=== PATIENT | male | born 1945 | race Asian ===

== ENCOUNTER 2020-10-02 08:29 | Inpatient (IN) | payer OTHER ==
[~2020-10-02] VITALS: Ht 165.1 cm; Wt 60.5 kg
[2020-10-02] MEDS: BUDESONIDE (INHALATION) 180 MCG IH IN SCH (06:08)
[2020-10-02 09:30] LABS: Basophils # (auto) 0 10 ^3/uL (0-0.2); Basophils % (auto) 0.3 % (0.0-2.0); Eosinophils # (auto) 0 10 ^3/uL (0-0.8); Hematocrit 45.5 % (41.0-53.0); Hemoglobin 15.8 g/dL (13.5-17.5); Lymphocytes # (auto) 0.7 10 ^3/uL (0.4-5.4); Lymphocytes % (auto) 9.2 % (10.0-50.0); Mean Corpuscular Hemoglobin 33.2 pg (28.0-32.0); Mean Corpuscular Hgb Conc. 34.8 g/dL (32.0-36.0); Mean Corpuscular Volume 95.7 fL (80.0-100.0); Monocytes # (auto) 0.8 10 ^3/uL (0-1.3); Monocytes % (auto) 10.5 % (0.0-12.0); Neutrophils # (auto) 5.8 10 ^3/uL (1.6-8.6); Nucleated Red Blood Cells % 0.1 %; Red Blood Cells 4.76 10^6/uL (4.5-5.90); Red Cell Distribution Width 12.8 % (11.8-14.3); White Blood Cell 7.3 10^3/uL (4.4-10.8)
[2020-10-02] MEDS ORDERED: ZINC SULFATE 220mg CAP or TAB PO ONE (09:30)
[2020-10-02] MEDS ORDERED: cefTRIAXone 1GM/50ML D5W 50 ML IV ONE (09:30)
[2020-10-02] MEDS ORDERED: DexAMETHasone SOD PHOS 10MG/1ML VIAL INJ IV ONE (09:30)
[2020-10-02] MEDS ORDERED: AZITHROMYCIN 500MG/ 250ML 250 ML IV ONE (09:30)
[2020-10-02 09:46] LABS: INR 1.02 (0.9-1.15); Partial Thromboplastin Time 30.2 sec (23.0-31.2)
[2020-10-02 10:07] LABS: Anion Gap 5 (5-15); Blood Urea Nitrogen 16 mg/dL (7-18); Carbon Dioxide 29 mmol/L (21-32); Chloride 97 mmol/L (98-107); Glucose 109 mg/dL (74-106); Potassium 3.9 mmol/L (3.5-5.1); Sodium 131 mmol/L (136-145)
[2020-10-02 10:15] LABS: Alanine Aminotransferase 154 U/L (16-61); Alkaline Phosphatase 61 U/L (45-117); Aspartate Aminotransferase 154 U/L (15-37); Bilirubin, Total 0.5 mg/dL (0.2-1.0); CRP High Sensitivity 9.94 mg/dL (< 0.3); GFR African American 101 mL/min; GFR Non-African American 83 mL/min; Lactate Dehydrogenase 407 U/L (87-241); Total Protein 7.3 g/dL (6.4-8.2)
[2020-10-02] MEDS ORDERED: ONDANSETRON HCL 4 MG/2 ML VIAL IV PRN (14:00)
[2020-10-02] MEDS ORDERED: NITROGLYCERIN 0.4 MG SL TAB SL PRN (14:00)
[2020-10-02] MEDS ORDERED: guaiFENesin-DM 100/10mg/5ml SYR PO PRN (14:00)
[2020-10-02] MEDS ORDERED: HYDROcodone-ACET 5/325MG TAB PO PRN (14:00)
[2020-10-02] MEDS ORDERED: ACETAMINOPHEN 500 MG TAB PO PRN (14:00)
[2020-10-02] MEDS ORDERED: MORPHINE SULFATE INJECTION 2 MG/ML SYRG IV PRN ×2 (14:00)
[2020-10-02] MEDS ORDERED: REMDESIVIR PER PHARMACY 0 ML IV SCH (14:00)
[2020-10-02] MEDS: ENOXAPARIN SOD 40 MG/0.4 ML SYRINGE SC SCH (22:09)
[2020-10-02 22:34] LABS: Urine Bacteria NONE SEEN /hpf (None Seen); Urine Blood TRACE /uL (Negative); Urine Specific Gravity 1.016 (1.001-1.035); Urine WBC <1 /hpf (0 - 3)
[2020-10-03 06:11] LABS: BUN/Creatinine Ratio 23.5; Calcium 7.8 mg/dL (8.5-10.1); Potassium 3.8 mmol/L (3.5-5.1)
[2020-10-03 06:18] LABS: Basophils # (auto) 0 10 ^3/uL (0-0.2); Basophils % (auto) 0.2 % (0.0-2.0); Eosinophils # (auto) 0 10 ^3/uL (0-0.8); Hematocrit 43.4 % (41.0-53.0); Hemoglobin 15.1 g/dL (13.5-17.5); Lymphocytes # (auto) 0.9 10 ^3/uL (0.4-5.4); Lymphocytes % (auto) 10.9 % (10.0-50.0); Mean Corpuscular Hemoglobin 32.9 pg (28.0-32.0); Mean Corpuscular Hgb Conc. 34.9 g/dL (32.0-36.0); Mean Corpuscular Volume 94.3 fL (80.0-100.0); Monocytes % (auto) 11.8 % (0.0-12.0); Neutrophils # (auto) 6.3 10 ^3/uL (1.6-8.6); Neutrophils % (auto) 77.1 % (37.0-80.0); Nucleated Red Blood Cells % 0.1 %; Red Cell Distribution Width 12.7 % (11.8-14.3); White Blood Cell 8.2 10^3/uL (4.4-10.8)
[2020-10-03] MEDS: cefTRIAXone 1GM/50ML D5W 50 ML IV SCH (09:44)
[2020-10-03] MEDS ORDERED: IVERMECTIN 3 MG TAB PO ONE (10:00)
[2020-10-03] MEDS ORDERED: THROAT LOZENGES(CEPASTAT) MT PRN (10:15)
[2020-10-03] MEDS: DexAMETHasone SOD PHOS 10MG/1ML VIAL INJ IV SCH (11:22)
[2020-10-03] MEDS: ZINC SULFATE 220mg CAP or TAB PO SCH (11:23)
[2020-10-03] MEDS: ASCORBIC ACID 1,000 MG TAB PO SCH (11:23)
[2020-10-03] MEDS: AZITHROMYCIN 500MG/ 250ML 250 ML IV SCH (11:23)
[2020-10-03] MEDS: FAMOTIDINE 20 MG TAB PO SCH (11:23)
[2020-10-03] MEDS: ENOXAPARIN SOD 40 MG/0.4 ML SYRINGE SC SCH ×2 (11:24→21:00)
[2020-10-03] MEDS: CHOLECALCIFEROL (VITD3) 2,000 UNIT CAP/TAB PO SCH (11:27)
[2020-10-03] MEDS: BUDESONIDE (INHALATION) 180 MCG IH IN SCH ×2 (13:03→20:29)
[2020-10-03] MEDS ORDERED: REMDESIVIR 200 MG in NS 210ml LOADING DOSE ADULT IV ONE (15:00)
[2020-10-03 16:00] VITALS: BP 132/75
[2020-10-03] MEDS ORDERED: LOSA-39 PO (17:00)
[2020-10-03] MEDS ORDERED: CHOL20007 PO (17:00)
[2020-10-03] MEDS: ALBUTEROL SULF HFA 90MCG INH 200DOSE IN PRN (20:30)
[2020-10-04] VITALS: BP 125/72
[2020-10-04 08:00] VITALS: BP 134/81
[2020-10-04] MEDS: cefTRIAXone 1GM/50ML D5W 50 ML IV SCH (08:14)
[2020-10-04 09:07] LABS: Basophils # (auto) 0 10 ^3/uL (0-0.2); Basophils % (auto) 0.2 % (0.0-2.0); Eosinophils # (auto) 0 10 ^3/uL (0-0.8); Hemoglobin 14.8 g/dL (13.5-17.5); Lymphocytes # (auto) 0.9 10 ^3/uL (0.4-5.4); Lymphocytes % (auto) 14.3 % (10.0-50.0); Mean Corpuscular Hgb Conc. 33.5 g/dL (32.0-36.0); Mean Corpuscular Volume 95.3 fL (80.0-100.0); Monocytes # (auto) 0.5 10 ^3/uL (0-1.3); Monocytes % (auto) 8.4 % (0.0-12.0); Neutrophils # (auto) 4.8 10 ^3/uL (1.6-8.6); Neutrophils % (auto) 77.1 % (37.0-80.0); Nucleated Red Blood Cells % 0.3 %; Red Blood Cells 4.61 10^6/uL (4.5-5.90); Red Cell Distribution Width 12.9 % (11.8-14.3); White Blood Cell 6.3 10^3/uL (4.4-10.8)
[2020-10-04] MEDS: BUDESONIDE (INHALATION) 180 MCG IH IN SCH ×2 (09:32→20:39)
[2020-10-04 09:34] LABS: Albumin 2.4 g/dL (3.4-5.0); Potassium 3.4 mmol/L (3.5-5.1)
[2020-10-04 09:38] LABS: BUN/Creatinine Ratio 19.5; Bilirubin, Total 0.4 mg/dL (0.2-1.0); Total Protein 6.1 g/dL (6.4-8.2)
[2020-10-04] MEDS: DexAMETHasone SOD PHOS 10MG/1ML VIAL INJ IV SCH (09:39)
[2020-10-04] MEDS: AZITHROMYCIN 500MG/ 250ML 250 ML IV SCH (09:39)
[2020-10-04] MEDS: ZINC SULFATE 220mg CAP or TAB PO SCH (09:40)
[2020-10-04] MEDS: FAMOTIDINE 20 MG TAB PO SCH (09:40)
[2020-10-04] MEDS: CHOLECALCIFEROL (VITD3) 2,000 UNIT CAP/TAB PO SCH (09:41)
[2020-10-04] MEDS: ASCORBIC ACID 1,000 MG TAB PO SCH (09:41)
[2020-10-04] MEDS: ENOXAPARIN SOD 40 MG/0.4 ML SYRINGE SC SCH ×2 (09:41→22:29)
[2020-10-04] MEDS ORDERED: POTASSIUM CHL 10 Meq TABLET PO ONE (11:45)
[2020-10-04] MEDS ORDERED: guaiFENesin-DM 100/10mg/5ml SYR PO ONE (14:00)
[2020-10-04 15:00] VITALS: BP 120/72
[2020-10-04] MEDS: REMDESIVIR 100mg 100 MG in SODIUM CHL 0.9% 230 ML IV SCH (15:00)
[2020-10-04 15:15] VITALS: BP 124/70
[2020-10-04 16:00] VITALS: BP 123/75
[2020-10-04] MEDS ORDERED: guaiFENesin-DM 100/10mg/5ml SYR PO PRN ×2 (16:30→20:15)
[2020-10-04] MEDS: ALBUTEROL SULF HFA 90MCG INH 200DOSE IN PRN (20:39)
[2020-10-05] VITALS: BP 119/69
[2020-10-05 07:07] LABS: Basophils # (auto) 0 10 ^3/uL (0-0.2); Basophils % (auto) 0.1 % (0.0-2.0); Eosinophils # (auto) 0 10 ^3/uL (0-0.8); Hematocrit 42.4 % (41.0-53.0); Lymphocytes % (auto) 12.5 % (10.0-50.0); Mean Corpuscular Hemoglobin 33.5 pg (28.0-32.0); Mean Corpuscular Hgb Conc. 35.3 g/dL (32.0-36.0); Mean Corpuscular Volume 94.9 fL (80.0-100.0); Monocytes # (auto) 1.2 10 ^3/uL (0-1.3); Monocytes % (auto) 15.5 % (0.0-12.0); Neutrophils # (auto) 5.5 10 ^3/uL (1.6-8.6); Neutrophils % (auto) 71.9 % (37.0-80.0); Nucleated Red Blood Cells % 0.2 %; Red Blood Cells 4.47 10^6/uL (4.5-5.90); Red Cell Distribution Width 12.5 % (11.8-14.3); White Blood Cell 7.7 10^3/uL (4.4-10.8)
[2020-10-05 07:27] LABS: Albumin 2.5 g/dL (3.4-5.0); Magnesium 2.4 mg/dL (1.6-2.6); Potassium 3.7 mmol/L (3.5-5.1)
[2020-10-05 07:29] LABS: BUN/Creatinine Ratio 27.1; Bilirubin, Total 0.4 mg/dL (0.2-1.0); Phosphorus 2.4 mg/dL (2.5-4.90); Total Protein 6.1 g/dL (6.4-8.2)
[2020-10-05 07:47] LABS: INR 1.12 (0.9-1.15)
[2020-10-05 08:18] VITALS: BP 135/74
[2020-10-05] MEDS: cefTRIAXone 1GM/50ML D5W 50 ML IV SCH (08:39)
[2020-10-05] MEDS: DexAMETHasone SOD PHOS 10MG/1ML VIAL INJ IV SCH (09:15)
[2020-10-05] MEDS: AZITHROMYCIN 500MG/ 250ML 250 ML IV SCH (09:16)
[2020-10-05] MEDS: ZINC SULFATE 220mg CAP or TAB PO SCH (09:16)
[2020-10-05] MEDS: ASCORBIC ACID 1,000 MG TAB PO SCH (09:17)
[2020-10-05] MEDS: FAMOTIDINE 20 MG TAB PO SCH (09:17)
[2020-10-05] MEDS: CHOLECALCIFEROL (VITD3) 2,000 UNIT CAP/TAB PO SCH (09:17)
[2020-10-05] MEDS: ENOXAPARIN SOD 40 MG/0.4 ML SYRINGE SC SCH (09:17)
[2020-10-05] MEDS ORDERED: POTASSIUM CHL 10 Meq TABLET PO SCH (10:00)
[2020-10-05] MEDS: BUDESONIDE (INHALATION) 180 MCG IH IN SCH (10:20)
[2020-10-05] MEDS: ALBUTEROL SULF HFA 90MCG INH 200DOSE IN PRN (13:42)
[2020-10-05 14:00] VITALS: BP 122/72
[2020-10-05] MEDS ORDERED: AZIT500T66 PO (14:09)
[2020-10-05] MEDS ORDERED: HYDR25TA5 PO (14:09)
[2020-10-05] MEDS ORDERED: CHOL1CAP47 PO (14:09)
[2020-10-05] MEDS ORDERED: POTA-167 PO (14:09)
[2020-10-05] MEDS ORDERED: DEX4T PO (14:09)
[2020-10-05] MEDS ORDERED: ATOR20TA50 PO (14:09)
[2020-10-05] MEDS ORDERED: FAMO-12 PO (14:09)
[2020-10-05] MEDS ORDERED: DEXT1SYP9 PO (14:09)
[2020-10-05] MEDS ORDERED: ASPI81CH59 PO (14:09)
[2020-10-05] MEDS ORDERED: ALBUAER3 IN (14:09)
[2020-10-05] MEDS ORDERED: ASCO10003 PO (14:09)
[2020-10-05] MEDS ORDERED: LOSA-69 PO (14:09)
[2020-10-05 14:15] VITALS: BP 120/71
[2020-10-05] MEDS: REMDESIVIR 100mg 100 MG in SODIUM CHL 0.9% 230 ML IV SCH (14:49)
[2020-10-05 16:00] VITALS: BP 126/73
== END 2020-10-05 18:00 | disposition home or self-care (01) | DRG 177 ==
LOC: ER 08:29 → TELE 08:30 → TELE-WESTW 10-03 15:50
PROVIDERS: ADMIT Nurse Practitioner Acute Care; ATTEND Hospitalist
PROC: XW033E5 Introduction of Remdesivir Anti-infective into Peripheral Vein, Percutaneous Approach, New Technology Group 5 (ICD-10-PCS; principal; 2020-10-03)
DX: U07.1 COVID-19 (principal); J12.82 Pneumonia due to coronavirus disease 2019; J96.01 Acute respiratory failure with hypoxia; E44.0 Moderate protein-calorie malnutrition; E87.1 Hypo-osmolality and hyponatremia; I10 Essential (primary) hypertension; D89.839 Cytokine release syndrome, grade unspecified; E87.6 Hypokalemia; Z68.22 Body mass index [BMI] 22.0-22.9, adult
CPT/HCPCS: 36415; 36416; 71045; 80048; 80053; 81001; 82728; 82805; 83615; 83735; 84100; 84443; 84484; 85025; 85379; 85610; 85730; 86141; 86850; 86900; 86901; 87040; 87426; 87804; 93005; 94640; 96365; 96366; 96368; 96375; 99291; G0378; J0696; J1100